=== PATIENT | female | born 1945 | race Caucasian/White ===

== ENCOUNTER → 2016-05-23 | Outpatient (CLI) | payer MEDICARE, OTHER ==
--- NOTE | ~2016-05-23 | ECH ---
Transthoracic Echocardiography Report (TTE) Demographics Patient Name ANGEL DARBY Date of Study 05/23/2016 G Patient Number [id number] Visit Number [id number] Date of 1945 Room Number Accession Number [id number] Gender Female Age 71 year(s) Referring Matt Morton MD Identifier Horse Anika Wilson Physician RDCS Physician Interpreting Falguni GUTIERREZ Java Spring Developer Physician Rhys Supervising Ordering Physician Matt Morton MD/NATHALIE GUTIERREZ Nurse Stress Wellness Consultant Conclusions Contractility Score Summary Normal Left Ventricular contractility was noted. Summary Technically adequate exam. The estimated left ventricular ejection fraction is 60-65%. Diastolic assessment reveals Grade I diastolic dysfunction. The left atrium is mildly dilated by LA volume index measurement. There is trivial aortic regurgitation by color Doppler. Mild tricuspid regurgitation by color Doppler. Normal pulmonary pressures. Mild right ventricular enlargement with normal systolic function. Recommendation The patient will be given the results of this study by the physician who ordered the exam. Procedure Type of Study TTE procedure:Echo Complete SF. Procedure Date Date: 05/23/2016 Start: 02:02 PM Technical Quality: Adequate visualization Indications:Chest pain. Additional Indications:Elevated D Dimer Appropriate Use Criteria: 9 Height: 63 inches Weight: 235 pounds BSA: 2.07 m Rhythm: NSR HR: 55 bpm BP: 142/80 mmHg M-Mode/2D Measurements LV Diastolic Dimension: 5.12 cm LV Systolic Dimension: 2.27 cm LV Septum Diastolic: 0.76 cm LV PW Diastolic: 0.88 cm AO Root Dimension: 3.21 cm Cardiac Output: 5.69 l/min LA Dimension: 4.03 cm Cardiac Index: 2.75 l/min*m RV Diastolic Dimension: 4.26 cm LA volume index: 36 ml/m LVOT: 2.08 cm LVOT VTI: 30.45 cm RV Base: 2.6 cm LV Stroke volume: 103.42 ml RV Mid: 2.5 cm LV Stroke volume index: 49.96 ml/m TAPSE: 2.8 cm TDI-S': 13 cm/s Doppler Measurements AV Peak Velocity: 1.8 m/s MV Peak E-Wave: 0.82 m/s AV Peak Gradient: 12.96 mmHg MV Peak A-Wave: 1.06 m/s AV Mean Gradient: 5.72 mmHg MV E/A Ratio: 0.78 LVOT Peak Velocity: 1.37 m/s MV P1/2t: 82.9 msec AV Area (Continuity):2.77 cm AV P1/2t: 504.3 msec MV Deceleration Time: 261.1 msec TR Velocity:2.62 m/s MV Area (PHT): 2.65 cm TR Gradient:27.46 mmHg PV Peak Velocity: 1.02 m/s Estimated RAP:3 mmHg PV Peak Gradient: 4.17 mmHg Estimated RVSP: 30 mmHg Estimated PASP: 30.46 mmHg E' Septal Velocity: 0.1 m/s A' Septal Velocity: 0.09 m/s E' Lateral Velocity: 0.06 m/s A' Lateral Velocity: 0.12 m/s RA Area: 13.37 cm Findings Left Ventricle Normal left ventricle size and function. Diastolic assessment reveals Grade I diastolic dysfunction. Right Ventricle Mild right ventricular enlargement with normal systolic function. Left Atrium The left atrium is mildly dilated by LA volume index measurement. Right Atrium Normal right atrial size. Mitral Valve Normal mitral valve structure and function. Mild mitral regurgitation by color Doppler. Aortic Valve The aortic valve was not well imaged. There is trivial aortic regurgitation by color Doppler. Tricuspid Valve Normal tricuspid valve structure and function. Mild tricuspid regurgitation by color Doppler. Normal pulmonary pressures. Pulmonic Valve Normal pulmonic valve structure and function. Pericardial Effusion No evidence of pericardial effusion. Miscellaneous Visualized portions of the aortic root and ascending aorta appear normal in size. Pleural Effusion No evidence of pleural effusion. Contractility Score LV regional wall motion:(0-Non visualized 1-Normal 2-Hypokinesis 3-Akinesis 4-Dyskinesis 5-Aneurysm) Signature
== END | disposition home or self-care (01) ==
LOC: CARD 13:29
DX: R07.9 Chest pain, unspecified (principal); R79.1 Abnormal coagulation profile